=== PATIENT | male | born 1980 | race Two or more races ===

== ENCOUNTER 2017-07-31 15:36 | Emergency (ER) | payer OTHER ==
[~2017-07-31] VITALS: Ht 188 cm; Wt 74.8 kg
[~2017-07-31 15:36] MED LIST: OTC PSORIASIS CREAM
[2017-07-31 15:44] VITALS: BP 126/88
--- NOTE | 2017-07-31 17:40 | NUR ---
MEDIUM SLING APPLIED ON THE L ARM OF THE PT.
== END 2017-07-31 17:42 | disposition home or self-care (01) ==
LOC: ER 15:40
DX: S13.9XXA Sprain of joints and ligaments of unspecified parts of neck, initial encounter (principal); S29.012A Strain of muscle and tendon of back wall of thorax, initial encounter; S43.401A Unspecified sprain of right shoulder joint, initial encounter; Z91.011 Allergy to milk products; F10.10 Alcohol abuse, uncomplicated; F12.10 Cannabis abuse, uncomplicated; Z88.8 Allergy status to other drugs, medicaments and biological substances; V49.49XA Driver injured in collision with other motor vehicles in traffic accident, initial encounter; Y93.89 Activity, other specified; Y92.89 Other specified places as the place of occurrence of the external cause; Y99.8 Other external cause status
CPT/HCPCS: 70450; 72125; 72128; 73030; 99284; A4606; Z7610